=== PATIENT | male | born 1990 | race Caucasian/White ===

== ENCOUNTER 2019-12-09 15:09 | Emergency (ER) | payer BC ==
[~2019-12-09] VITALS: Ht 180.3 cm; Wt 118.2 kg
[2019-12-09 15:25] VITALS: Ht 180.3 cm; Wt 118.2 kg
[2019-12-09] MEDS ORDERED: PROCTOFOAM-HC 110 GM RC (16:03)
[2019-12-09] MEDS ORDERED: STOOL SOFTENER240 MG PO (16:03)
[2019-12-09] MEDS ORDERED: HYDROCORTISONE30 G8 TOPICAL (16:03)
[2019-12-09] MEDS ORDERED: MIRALAX17 GM PO (16:03)
[2019-12-09 16:13] VITALS: BP 124/83
== END 2019-12-09 16:14 | disposition home or self-care (01) ==
LOC: D.ER 15:09
DX: K64.8 Other hemorrhoids (principal); K64.4 Residual hemorrhoidal skin tags